=== PATIENT | female | born 1990 | race African-American/Black ===

== ENCOUNTER 2018-05-12 20:18 | Emergency (ER) | payer SELFPAY ==
[2018-05-12] MEDS ORDERED: NA CHLORIDE 0.9% 1,000 ML ONE (22:18)
[2018-05-12] MEDS ORDERED: METOCLOPRAMIDE 10 MG/2mL INJ ONE (22:35)
[2018-05-12] MEDS ORDERED: ONDANSETRON 4 MG/2 ML VIAL ONE (22:36)
--- NOTE | 2018-05-12 22:58 | RAD REPORT ---
EXAM DESCRIPTION: CT - Head Brain Wo Cont - 05/12/2018 10:12 pm CLINICAL HISTORY: Hypertension, blurred vision COMPARISON: None. TECHNIQUE: Axial 5 mm thick images of the head were obtained without IV contrast. All CT scans are performed using dose optimization technique as appropriate and may include automated exposure control or mA/KV adjustment according to patient size. FINDINGS: No intracranial hemorrhage, mass, edema or shift of mid-line structures. No acute infarcti on changes seen. No abnormal extra-axial fluid collections. Ventricles are normal. Mastoid air cells and visualized portions of the paranasal sinuses are clear. No acute bony findings. IMPRESSION: Negative non-contrast CT head examination.
[2018-05-12] MEDS ORDERED: AMLODIPINE 5 MG TAB ONE (23:04)
[2018-05-12] MEDS ORDERED: cloNIDine HCl 0.1 MG TAB ONE (23:04)
[2018-05-12 23:08] LABS: Absolute Lymphocytes (CBC) 1.9 K/uL (0.7-4.9); Absolute Monocytes 0.6 K/uL (0.1-1.3); Absolute Neutrophil 4.9 K/uL (1.8-8.0); Basophils % 0.9 % (0-1.3); Eosinophils % 4.3 % (0-4.4); Hematocrit 40.4 % (36.0-45.0); Lymphocytes % 24.3 % (15.3-44.8); MCH 27.7 pg (27.0-35.0); MCV 82.9 fL (80-100); MPV 8.3 fL (7.6-11.3); Monocytes % 7.5 % (3.3-12.3); RBC Red Blood Cell Count 4.87 M/uL (3.86-4.86)
[2018-05-12 23:12] LABS: Protime INR 0.94
[2018-05-12 23:27] LABS: ALT/SGPT 16 U/L (12-78); AST/SGOT 17 U/L (15-37); Albumin 3.6 g/dL (3.4-5.0); Alkaline Phosphatase 71 U/L (45-117); BUN Blood Urea Nitrogen 14 mg/dL (7-18); Bicarbonate 27 mmol/L (21-32); Bilirubin Direct < 0.1 mg/dL (0-0.2); Bilirubin Total 0.3 mg/dL (0.2-1.0); Glucose Level 80 mg/dL (74-106); Magnesium 2.2 mg/dL (1.8-2.4); Potassium 3.8 mmol/L (3.5-5.1); Protein, Total 7.7 g/dL (6.4-8.2); Sodium Level 141 mmol/L (136-145); Troponin (Emerg Dept Use Only) < 0.02 ng/mL (0.0-0.045)
--- NOTE | 2018-05-12 23:32 | ER ---
Nurse's Notes [facility] Name: Armond Rosa Age: 27 yrs Sex: Female : 1990 Arrival Date: 05/12/2018 Time: 20:22 Bed 5 Private MD: Diagnosis: Hypertensive heart disease;Headache Presentation: 05/12 20:29 Presenting complaint: Patient states: High blood pressure for 9 years and blurred aj vision in left eye for 3 weeks. Patient states "They told me I had high blood pressure but I didn't want to take it serious until my vision got messed up.". Transition of care: patient was not received from another setting of care. Onset of symptoms was April 17, 2018. Risk Assessment: Do you want to hurt yourself or someone else? Patient reports no desire to harm self or others. Initial Sepsis Screen: Does the patient meet any 2 criteria? No. Patient's initial sepsis screen is negative. Does the patient have a suspected source of infection? No. Patient's initial sepsis screen is negative. Care prior to arrival: None. 20:29 Method Of Arrival: Ambulatory aj 20:29 Acuity: SOFY 2 aj Triage Assessment: 20:31 General: Appears in no apparent distress. comfortable, Behavior is calm, cooperative, aj appropriate for age. Pain: Complains of pain in face and scalp. EENT: Reports blurred vision in outer aspect of conjuctiva of left eye, iris of left eye and inner aspect of conjunctiva of left eye. Neuro: Level of Consciousness is awake, alert, obeys commands, Oriented to person, place, time, situation, Appropriate for age Reports blurred vision headache. Respiratory: Airway is patent Respiratory effort is even, unlabored, Respiratory pattern is regular, symmetrical. Derm: Skin is intact, is healthy with good turgor, Skin is pink, warm \\T\\ dry. normal. 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 - Social history:: Smoking status: Patient uses tobacco products, smokes one-half pack cigarettes per day. - Ebola Screening: : Patient negative for fever greater than or equal to 101.5 degrees Fahrenheit, and additional compatible Ebola Virus Disease symptoms Patient denies exposure to infectious person Patient denies travel to an Ebola-affected area in the 21 days before illness onset No symptoms or risks identified at this time. Screenin:15 Abuse screen: Denies threats or abuse. Denies injuries from another. Nutritional rr5 screening: No deficits noted. Tuberculosis screening: No symptoms or risk factors identified. Fall Risk None identified. Assessment: 20:48 General: Appears in no apparent distress. distressed, Behavior is calm, cooperative, rr5 appropriate for age. Pain: Complains of pain in left eye, left face Pain radiates to neck Pain currently is 5 out of 10 on a pain scale. Quality of pain is described as aching, Pain began gradually, 2 weeks Is intermittent. 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 Reports. Cardiovascular: Capillary refill < 3 seconds Patient's skin is warm and dry. Respiratory: Airway is patent Respiratory effort is even, unlabored, Respiratory pattern is regular, symmetrical. GI: Abdomen is round. : No signs and/or symptoms were reported regarding the genitourinary system. EENT: Eyes numbness left eye. Reports blurred vision in left eye. Derm: Skin is intact, Skin is dry, Skin is pink, warm \\T\\ dry. Musculoskeletal: Circulation, motion, and sensation intact. Capillary refill < 3 seconds, Range of motion: intact in all extremities. 23:05 Reassessment: Patient appears in no apparent distress at this time. Patient and/or rr5 family updated on plan of care and expected duration. Pain level reassessed. headache subside,tolerated compare before.comfortable as claimed Patient states feeling better. Patient states symptoms have improved. 23:30 Reassessment: Patient appears in no apparent distress at this time. Patient is alert, rr5 oriented x 3, equal unlabored respirations, skin warm/dry/pink. patient wants to be discharged now. explained regarding AMA but still wants to go. Page PA informed, AMA form signed. Patient states feeling better. Vital Signs: 20:31 BP 204 / 144; Pulse 95; Resp 16; Temp 98.3; Pulse Ox 99% on R/A; Weight 108.86 kg; aj Height 5 ft. 3 in. (160.02 cm); 21:00 BP 186 / 121; Pulse 90; Resp 17; Pulse Ox 100% on R/A; Pain 5/10; rr5 22:00 BP 185 / 115; Pulse 85; Resp 17; Pulse Ox 98% on R/A; rr5 22:47 BP 193 / 112; Pulse 80; Resp 20; Pulse Ox 99% on R/A; rr5 23:20 BP 197 / 124; Pulse 75; Resp 17; Pulse Ox 99% on R/A; rr5 20:31 Body Mass Index 42.51 (108.86 kg, 160.02 cm) aj ED Course: 20:22 Patient arrived in ED. ag3 20:31 Triage completed. aj 20:31 Arm band placed on left wrist. Patient placed in an exam room. aj 20:47 Delbert Kellogg, BARAK is Primary Nurse. rr5 21:04 Aaron Henderson PA is PHCP. cp 21:04 Bruno Pike MD is Attending Physician. cp 21:15 Patient has correct armband on for positive identification. Bed in low position. Call rr5 light in reach. Side rails up X 1. 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 Pulse ox on. NIBP on. rr5 22:05 Inserted saline lock: 20 gauge in left hand, using aseptic technique. Blood collected. rr5 22:[address] via wheelchair. nj 22:12 CT completed. Patient tolerated procedure well. Patient moved back from CT. nj 22:12 CT Head Brain wo Cont In Process Unspecified. EDMS 22:24 Basic Metabolic Panel Sent. ds4 22:24 CBC with Diff Sent. ds4 23:36 No provider procedures requiring assistance completed. IV discontinued, bleeding rr5 controlled, Pressure dressing applied. Administered Medications: Discontinued: NS 0.9% 1000 ml IV at 1 bolus Per protocol; 1000 mL bolus 22:40 Drug: Zofran 4 mg Route: IVP; Site: left hand; rr5 23:39 Follow up: Response: Marked relief of symptoms rr5 22:45 Drug: NS 0.9% 1000 ml Route: IV; Rate: 1 bolus; Site: left hand; rr5 22:45 Drug: Reglan 10 mg Route: IVP; Site: left hand; rr5 23:40 Follow up: Response: Marked relief of symptoms rr5 23:02 Drug: cloNIDine 0.2 mg Route: PO; rr5 23:38 Follow up: Response: Blood pressure is lowered; Other; went to AMA rr5 23:02 Drug: Norvasc 10 mg Route: PO; rr5 23:38 Follow up: Response: Other rr5 23:38 Follow up: went to AMA rr5 Intake: Outcome: 23:36 AMA AMA form signed rr5 23:36 Condition: stable 23:36 Discharge instructions given to patient, Instructed on discharge instructions, follow up and referral plans. medication usage, Demonstrated understanding of instructions, follow-up care, medications. 23:46 Patient left the ED. rr5 Signatures: Dispatcher [employer] EDYvonne Noriega, RN RN Rene Barajas ds4 Aaron Henderson PA PA cp Jordan, Nathan nj Gomez, Alice ag3 Delbert Kellogg, RN RN rr5
--- NOTE | 2018-05-12 23:32 | EDPHYS ---
Physician Documentation [facility] Name: Armond Rosa Age: 27 yrs Sex: Female : 1990 Arrival Date: 05/12/2018 Time: 20:22 Bed 5 Private MD: ED Physician Bruno Pike HPI: 05/12 21:45 This 27 yrs old Black Female presents to ER via Ambulatory with complaints of High cp Blood Pressure. 21:45 The patient has elevated blood pressure and discovered this at home. cp 21:45 Onset: The symptoms/episode began/occurred 9 years ago, became worse over past several cp days. 21:45 Associated signs and symptoms: Pertinent positives: headache, visual changes, Pertinent cp negatives: chest pain, dizziness, dyspnea, vomiting, weakness. Severity of symptoms: At its worst the blood pressure was 204 mm Hg, in the emergency department the blood pressure is unchanged. 21:45 Patient reports having untreated hypertension for past 9 years. Patient states she was cp taking unknown medication but stopped taking medication w/o seeing doctor. 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 - Social history:: Smoking status: Patient uses tobacco products, smokes one-half pack cigarettes per day. - Ebola Screening: : Patient negative for fever greater than or equal to 101.5 degrees Fahrenheit, and additional compatible Ebola Virus Disease symptoms Patient denies exposure to infectious person Patient denies travel to an Ebola-affected area in the 21 days before illness onset No symptoms or risks identified at this time. ROS: 22:00 Constitutional: Negative for body aches, chills, fever, poor PO intake. cp 22:00 ENT: Negative for injury, pain, and discharge. cp 22:00 Eyes: Positive for blurry vision, Negative for discharge, pain, redness, vision loss. 22:00 Cardiovascular: Negative for chest pain, edema, palpitations. 22:00 Respiratory: Negative for cough, shortness of breath, wheezing. 22:00 Abdomen/GI: Negative for abdominal pain, nausea, vomiting, and diarrhea, constipation, black/tarry stool, rectal bleeding. 22:00 Back: Negative for pain at rest, pain with movement, radiated pain. 22:00 : Negative for urinary symptoms, vaginal bleeding, vaginal discharge. 22:00 Skin: Negative for cellulitis, rash. 22:00 Neuro: Positive for headache, Negative for altered mental status, dizziness, seizure activity, speech changes, syncope, near syncope. 22:00 All other systems are negative. Exam: 22:00 Head/Face: Normocephalic, atraumatic. Eyes: Pupils equal round and reactive to light, cp extra-ocular motions intact. Lids and lashes normal. Conjunctiva and sclera are non-icteric and not injected. Cornea within normal limits. Periorbital areas with no swelling, redness, or edema. ENT: Nares patent. No nasal discharge, no septal abnormalities noted. Tympanic membranes are normal and external auditory canals are clear. Oropharynx with no redness, swelling, or masses, exudates, or evidence of obstruction, uvula midline. Mucous membranes moist. Neck: Trachea midline, no thyromegaly or masses palpated, and no cervical lymphadenopathy. Supple, full range of motion without nuchal rigidity, or vertebral point tenderness. No Meningismus. Chest/axilla: Normal chest wall appearance and motion. Nontender with no deformity. No lesions are appreciated. 22:00 Constitutional: The patient appears in no acute distress, alert, awake, non-diaphoretic, non-toxic, well developed, well nourished, obese. 22:00 Cardiovascular: Rate: normal, Rhythm: regular, Heart sounds: murmur, not appreciated, Edema: is not appreciated, JVD: is not appreciated. 22:00 Respiratory: the patient does not display signs of respiratory distress, Respirations: normal, no use of accessory muscles, no retractions, no splinting, no tachypnea, labored breathing, is not present, Breath sounds: are clear throughout, no decreased breath sounds, no stridor, no wheezing. 22:00 Abdomen/GI: Inspection: abdomen appears normal, Bowel sounds: active, all quadrants, Palpation: abdomen is soft and non-tender, in all quadrants, rebound tenderness, is not appreciated, voluntary guarding, is not appreciated, involuntary guarding, is not appreciated. 22:00 Back: pain, is absent, ROM is normal, CVA tenderness, is absent. cp 22:00 Skin: cellulitis, is not appreciated, no rash present. 22:00 Neuro: Orientation: to person, place \T\ time. Mentation: is normal, Cerebellar function: is grossly normal, Motor: moves all fours, strength is normal, Sensation: is normal, Gait: is steady. 22:25 ECG was reviewed by the Attending Physician. cp Vital Signs: 20:31 BP 204 / 144; Pulse 95; Resp 16; Temp 98.3; Pulse Ox 99% on R/A; Weight 108.86 kg; aj Height 5 ft. 3 in. (160.02 cm); 21:00 BP 186 / 121; Pulse 90; Resp 17; Pulse Ox 100% on R/A; Pain 5/10; rr5 22:00 BP 185 / 115; Pulse 85; Resp 17; Pulse Ox 98% on R/A; rr5 22:47 BP 193 / 112; Pulse 80; Resp 20; Pulse Ox 99% on R/A; rr5 23:20 BP 197 / 124; Pulse 75; Resp 17; Pulse Ox 99% on R/A; rr5 20:31 Body Mass Index 42.51 (108.86 kg, 160.02 cm) aj MDM: 21:04 Patient medically screened. cp 22:00 Differential diagnosis: hypertensive crisis, Malignant HTN, CVA, intracerebral cp hemorrhage. 23:30 Data reviewed: vital signs, nurses notes, lab test result(s), EKG, radiologic studies, cp CT scan. 23:30 Test interpretation: by ED physician or midlevel provider: ECG. 23:30 Counseling: I had a detailed discussion with the patient and/or guardian regarding: the cp historical points, exam findings, and any diagnostic results supporting the discharge/admit diagnosis, lab results, radiology results, the need for outpatient follow up, for definitive care, a family practitioner. 05/12 21:46 Order name: Basic Metabolic Panel cp 05/12 21:46 Order name: CBC with Diff cp 05/12 21:46 Order name: LFT's cp 05/12 21:46 Order name: Magnesium cp 05/12 21:46 Order name: PT-INR cp 05/12 21:46 Order name: Troponin (emerg Dept Use Only) cp 05/12 21:46 Order name: CT Head Brain wo Cont; Complete Time: 23:04 cp 05/12 23:04 Interpretation: Report reviewed. cp 05/12 22:59 Order name: Urine Dipstick--Ancillary (enter results) ms 05/12 22:59 Order name: Urine --Ancillary (enter results) ms 05/12 21:46 Order name: EKG; Complete Time: 21:47 cp 05/12 21:46 Order name: Cardiac monitoring; Complete Time: 22:08 cp 05/12 21:46 Order name: EKG - Nurse/Tech; Complete Time: 22:08 cp 05/12 21:46 Order name: IV Saline Lock; Complete Time: 22:08 cp 05/12 21:46 Order name: Labs collected and sent; Complete Time: 22:08 cp 05/12 21:46 Order name: O2 Per Protocol; Complete Time: 22:08 cp 05/12 21:46 Order name: O2 Sat Monitoring; Complete Time: 22:08 cp 05/12 22:22 Order name: Urine Dipstick-Ancillary (obtain specimen); Complete Time: 22:41 cp 05/12 22:22 Order name: Urine Test (obtain specimen); Complete Time: 22:41 cp EC:25 Rate is 68 beats/min. Rhythm is regular. AR interval is normal. QRS interval is normal. cp QT interval is normal. T waves are Inverted in lead III. Interpreted by me. Reviewed by me. Administered Medications: Discontinued: NS 0.9% 1000 ml IV at 1 bolus Per protocol; 1000 mL bolus 22:40 Drug: Zofran 4 mg Route: IVP; Site: left hand; rr5 23:39 Follow up: Response: Marked relief of symptoms rr5 22:45 Drug: NS 0.9% 1000 ml Route: IV; Rate: 1 bolus; Site: left hand; rr5 22:45 Drug: Reglan 10 mg Route: IVP; Site: left hand; rr5 23:40 Follow up: Response: Marked relief of symptoms rr5 23:02 Drug: cloNIDine 0.2 mg Route: PO; rr5 23:38 Follow up: Response: Blood pressure is lowered; Other; went to AMA rr5 23:02 Drug: Norvasc 10 mg Route: PO; rr5 23:38 Follow up: Response: Other rr5 23:38 Follow up: went to AMA rr5 Disposition: 11/10 04:10 Co-signature as Attending Physician, Bruno Pike MD I agree with the assessment and wa plan of care. Disposition: 05/12/18 23:31 Patient has left against medical advice. Impression: Hypertensive heart disease, Headache. - Patients states they are going to Home. - Condition is Stable. - Discharge Instructions: How to Take Your Blood Pressure, [id number], Managing Your Hypertension. - Prescriptions for Norvasc 5 mg Oral Tablet - take 1 tablet by ORAL route once daily; 20 tablet. Follow up: Private Physician; When: Tomorrow; Reason: Recheck today's complaints. - Problem is an ongoing problem. - Symptoms are unchanged. Signatures: Dispatcher [employer] Yvonne Burgess RN RN Aaron Sloan PA PA cp Appiah, William, MD MD wa Roque, Raymond RN RN rr5 Corrections: (The following items were deleted from the chart) 05/12 23:46 23:31 05/12/2018 23:31 Patients has left against medical advice. Impression: rr5 Hypertensive heart disease; Headache. Patient states they are going to Home. Condition is Stable. Follow up: Private Physician; When: Tomorrow; Reason: Recheck today's complaints. Problem is an ongoing problem. Symptoms are unchanged. cp
[2018-05-12 23:51] LABS: Urine Specific Gravity 1.025 (1.005-1.030)
[2018-05-12 23:52] LABS: Urine Blood 1+ (NEG); Urine Glucose NEGATIVE (NEG); Urine Protein NEGATIVE (NEG)
--- NOTE | 2018-05-13 07:10 | EKG ---
Test Date: 2018-05-12 Test Time: 22:22:30 Executive Chairman: RR MEASUREMENT RESULTS: Intervals: Rate: 68 SD: 154 QRSD: 80 QT: 412 QTc: 438 [place]: P: 7 SD: 154 QRS: 42 T: 3 INTERPRETIVE STATEMENTS: Normal sinus rhythm Normal ECG No previous ECG available for comparison Electronically Signed On 05-13-18 07:09:34 BATH MIX OPERATOR by Sammy Diehl
== END 2018-05-12 23:46 | disposition left against medical advice (07) ==
LOC: ER 20:18
DX: I11.9 Hypertensive heart disease without heart failure (principal); I10 Essential (primary) hypertension; F17.210 Nicotine dependence, cigarettes, uncomplicated
CPT/HCPCS: 36415; 70450; 80048; 80076; 81003; 81025; 83735; 84484; 85025; 85610; 93005; 96374; 96375; 99285; J2405; J2765; J7030

== ENCOUNTER 2018-09-18 12:05 | Emergency (ER) | payer SELFPAY ==
--- NOTE | 2018-09-18 13:17 | EDPHYS ---
Physician Documentation [facility] Name: Armond Rosa Age: 27 yrs Sex: Female : 1990 Arrival Date: 09/18/2018 Time: 12:06 Bed 9 Private MD: Unknown, Unknown ED Physician Linda Mina HPI: 09/18 13:14 This 27 yrs old Black Female presents to ER via Ambulatory with complaints of Toothache.ma2 13:14 The patient presents with pain. Onset: The symptoms/episode began/occurred gradually, 3 ma2 day(s) ago. Duration: The symptoms are continuous. Associated signs and symptoms: Pertinent negatives: dysphagia, inability to eat, pain, swelling. Severity of symptoms: At their worst the symptoms were moderate, in the emergency department the symptoms are unchanged. 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 - Social history:: Smoking status: Patient uses tobacco products, Patient uses Patient/guardian denies using alcohol, street drugs, The patient lives with family. - Ebola Screening: : No symptoms or risks identified at this time. - Family history:: not pertinent. ROS: 13:14 Constitutional: Negative for fever, chills, and weight loss, Neck: Negative for injury, ma2 pain, and swelling, Respiratory: Negative for shortness of breath, cough, wheezing, and pleuritic chest pain. 13:14 ENT: Positive for Teeth pain Negative for Gum pain pulling at ears, Teeth pain 13:14 All other systems are negative. Exam: 13:14 Constitutional: This is a well developed, well nourished patient who is awake, alert, ma2 and in no acute distress. 13:14 Head/Face: Normocephalic, atraumatic. Eyes: Pupils equal round and reactive to light, extra-ocular motions intact. Lids and lashes normal. Conjunctiva and sclera are non-icteric and not injected. Cornea within normal limits. Periorbital areas with no swelling, redness, or edema. Neck: Trachea midline, no thyromegaly or masses palpated, and no cervical lymphadenopathy. Supple, full range of motion without nuchal rigidity, or vertebral point tenderness. No Meningismus. Chest/axilla: Normal chest wall appearance and motion. Nontender with no deformity. No lesions are appreciated. MS/ Extremity: Pulses equal, no cyanosis. Neurovascular intact. Full, normal range of motion. 13:14 ENT: Mouth: Posterior pharynx: is normal, Airway: normal, Dental exam: cellulitis, dental caries, gum swelling, not appreciated, missing teeth. Vital Signs: 12:26 BP 189 / 101; Pulse 88; Resp 18; Temp 97.5(TE); Pulse Ox 100% ; Pain 10/10; hb MDM: 12:50 Patient medically screened. co2 13:14 Differential diagnosis: dental caries, dental abscess, pericoronitis. Data reviewed: ma2 vital signs, nurses notes. Counseling: I had a detailed discussion with the patient and/or guardian regarding: the historical points, exam findings, and any diagnostic results supporting the discharge/admit diagnosis, the presence of at least one elevated blood pressure reading (>120/80) during this emergency department visit, the need for outpatient follow up. Response to treatment: the patient's symptoms have markedly improved after treatment. Administered Medications: 13:26 Drug: TORadol 60 mg Route: IM; Site: right deltoid; iw Disposition: 09/18/18 13:16 Discharged to Home. Impression: Dental caries. - Condition is Stable. - Discharge Instructions: Dental Pain. - Prescriptions for Augmentin 875- 125 mg Oral Tablet - take 1 tablet by ORAL route every 12 hours for 10 days; 20 tablet. Tylenol- Codeine #3 300-30 mg Oral Tablet - take 2 tablet by ORAL route every 6 hours As needed; 6 tablet. - Work release form, Medication Reconciliation Form, Thank You Letter, Antibiotic Education, Prescription Opioid Use form. - Follow up: Private Physician; When: Tomorrow; Reason: Continuance of care. Signatures: Katina Torres RN RN Mirtha Kwan RN RN Linda Mina MD MD ma2 Corrections: (The following items were deleted from the chart) 13:34 13:16 09/18/2018 13:16 Discharged to Home. Impression: Dental caries. Condition is iw Stable. Forms are Medication Reconciliation Form, Thank You Letter, Antibiotic Education, Prescription Opioid Use. Follow up: Private Physician; When: Tomorrow; Reason: Continuance of care. ma2
--- NOTE | 2018-09-18 13:17 | ER ---
Nurse's Notes [facility] Name: Armond Rosa Age: 27 yrs Sex: Female : 1990 Arrival Date: 09/18/2018 Time: 12:06 Bed 9 Private MD: Unknown, Unknown Diagnosis: Dental caries Presentation: 09/18 12:25 Presenting complaint: Right upper molar pain 10/10 since this morning. Transition of hb care: patient was not received from another setting of care. Onset of symptoms was September 18, 2018. Risk Assessment: Do you want to hurt yourself or someone else? Patient reports no desire to harm self or others. Care prior to arrival: None. 12:25 Method Of Arrival: Ambulatory hb 12:25 Acuity: SOFY 4 hb 13:00 Initial Sepsis Screen: Does the patient meet any 2 criteria? No. Patient's initial iw sepsis screen is negative. Does the patient have a suspected source of infection? No. Patient's initial sepsis screen is negative. Triage Assessment: 13:00 General: Appears in no apparent distress. Behavior is calm. iw 13:00 EENT: Reports pain in right jaw. iw [employer]: 12:26 LMP 09/11/2018 hb Historical: - Allergies: 12:26 No Known Allergies; hb - Home Meds: 12:26 None [Active]; hb - PMHx: 12:26 Hypertension; hb - PSHx: 12:26 None; hb - Immunization history:: Adult Immunizations up to date. - Social history:: Smoking status: Patient uses tobacco products, Patient uses Patient/guardian denies using alcohol, street drugs, The patient lives with family. - Ebola Screening: : No symptoms or risks identified at this time. - Family history:: not pertinent. Screenin:30 Abuse screen: Denies threats or abuse. Denies injuries from another. Nutritional iw screening: No deficits noted. Tuberculosis screening: No symptoms or risk factors identified. Fall Risk None identified. Assessment: 13:00 General: Appears in no apparent distress. Behavior is calm, cooperative. Pain: iw Complains of pain in right jaw. Neuro: Level of Consciousness is awake, alert, obeys commands, Oriented to person, place, time, situation. Cardiovascular: Patient's skin is warm and dry. Respiratory: Respiratory effort is even, unlabored, Respiratory pattern is regular, symmetrical. EENT: Derm: Skin is intact, is healthy with good turgor. Musculoskeletal: Range of motion: intact in all extremities. Vital Signs: 12:26 BP 189 / 101; Pulse 88; Resp 18; Temp 97.5(TE); Pulse Ox 100% ; Pain 10/10; hb ED Course: 12:06 Patient arrived in ED. ag5 12:07 Unknown, Unknown is Private Physician. ag5 12:25 Triage completed. hb 12:26 Arm band placed on right wrist. hb 12:50 Katina Torres, RN is Primary Nurse. iw 12:50 Linda Mina MD is Attending Physician. ma2 13:00 Patient has correct armband on for positive identification. iw 13:32 No provider procedures requiring assistance completed. Patient did not have IV access iw during this emergency room visit. Administered Medications: 13:26 Drug: TORadol 60 mg Route: IM; Site: right deltoid; iw Outcome: 13:16 Discharge ordered by . ma2 13:33 Discharged to home ambulatory, with family. iw 13:33 Condition: good 13:33 Discharge instructions given to patient, family, Instructed on discharge instructions, Demonstrated understanding of instructions, follow-up care, medications, Prescriptions given X 2. 13:34 Patient left the ED. iw Signatures: Katina Torres RN RN Mirtha Kwan RN RN Linda Mina MD MD ma2 Gaskin, Ajare ag5
[2018-09-18] MEDS ORDERED: KETOROLAC 30 MG/ML INJ ONE (13:33)
== END 2018-09-18 13:34 | disposition home or self-care (01) ==
LOC: ER 12:05
DX: K02.9 Dental caries, unspecified (principal); I10 Essential (primary) hypertension; Z72.0 Tobacco use
CPT/HCPCS: 96372; 99283